=== PATIENT | male | born 1955 | race American Indian/Alaskan Native ===

== ENCOUNTER 2018-06-25 20:39 | Inpatient (IN) | payer OTHER, MEDICAID ==
[2018-06-25 20:45] VITALS: BMI 22.8
--- NOTE | 2018-06-25 21:09 | ED PDOC ---
Arrival/HPI - General Chief Complaint: Upper Extremity Problem/Injury Time Seen by Provider: 06/25/18 21:02 Historian: Patient - History of Present Illness Narrative History of Present Illness (Text): 06/25/18 21:05 Ford Maynard is a 63 year old male, whose past medical history includes CVA with left hemiparesis, who presents to the Emergency department brought in by EMS for left arm pain. Patient reports he has been experiencing left elbow/arm pain for the past few weeks. Limited HPI and ROS secondary to patient's dyarthria/acuity of condition. Symptom Onset: Gradual Symptom Course: Unchanged Activities at Onset: Light Context: Home Past Medical History - Provider Review Nursing Documentation Reviewed: Yes - Infectious Disease Hx of Infectious Diseases: None - Cardiac Hx Cardiac Disorders: Yes Hx Hypertension: Yes - Pulmonary Hx Respiratory Disorders: No - Neurological Hx Neurological Disorder: Yes HX Cerebrovascular Accident: Yes (L sided weakness and slurred speech) - HEENT Hx HEENT Disorder: No - Renal Hx Renal Disorder: No - Endocrine/Metabolic Hx Endocrine Disorders: Yes Hx Diabetes Mellitus Type 2: Yes - Hematological/Oncological Hx Blood Disorders: Yes Hx AIDS: Yes - Integumentary Hx Dermatological Disorder: No - Musculoskeletal/Rheumatological Hx Musculoskeletal Disorders: No - Gastrointestinal Hx Gastrointestinal Disorders: No - Genitourinary/Gynecological Hx Genitourinary Disorders: No - Psychiatric Hx Psychophysiologic Disorder: No Hx Substance Use: No Family/Social History - Physician Review Nursing Documentation Reviewed: Yes Family/Social History: Unknown Family HX Smoking Status: Never Smoked Hx Alcohol Use: No Hx Substance Use: No Allergies/Home Meds Allergies/Adverse Reactions: Allergies No Known Allergies Allergy (Verified 06/25/18 20:45) Home Medications: Home Meds Medication Instructions Recorded Confirmed Unobtainable 06/25/18 06/25/18 Review of Systems - Review of Systems Systems not reviewed;Unavailable: Acuity of Condition Cardiovascular: absent: Chest Pain Gastrointestinal: absent: Abdominal Pain Musculoskeletal: Arthralgias (+left elbow/arm pain) Physical Exam Vital Signs Reviewed: Yes Vital Signs Temp Pulse Resp BP Pulse Ox 06/25/18 20:50 99.3 F 88 19 171/97 H 100 Temperature: Afebrile Blood Pressure: Hypertensive Pulse: Regular Respiratory Rate: Normal Appearance: Positive for: Well-Appearing, Non-Toxic, Comfortable Pain Distress: None - Systems Exam Head: Present: Atraumatic, Normocephalic Pupils: Present: PERRL Extroacular Muscles: Present: EOMI Conjunctiva: Present: Normal Mouth: Present: Moist Mucous Membranes Neck: Present: Normal Range of Motion Respiratory/Chest: Present: Clear to Auscultation, Good Air Exchange. No: Respiratory Distress, Accessory Muscle Use Cardiovascular: Present: Regular Rate and Rhythm, Normal S1, S2. No: Murmurs Abdomen: No: Tenderness, Distention, Peritoneal Signs Back: Present: Normal Inspection Upper Extremity: Present: Tenderness (Pain on palpation of left elbow/forearm), Swelling (Swelling to left elbow/foreaem), Neurovascularly Intact, Temperature Abnormalties (Warmth to left elbow/forearm). No: Cyanosis, Edema Lower Extremity: Present: Normal Inspection. No: Edema Neurological: Present: GCS=15, CN II-XII Intact. No: Speech Normal (Dysarthria (old)), Motor Func Grossly Intact (Left-sided hemiparesis (old)) Skin: Present: Warm, Dry, Normal Color. No: Rashes Psychiatric: Present: Alert, Oriented x 3, Normal Insight, Normal Concentration Medical Decision Making ED Course and Treatment: 06/25/18 21:05 Impression: 63 year old male complaining of left elbow/arm pain. Plan: -- US Duplex Upper Extremities -- XR Left Elbow -- EKG -- Labs, VBG, blood cultures -- IV fluids -- Reassess and disposition Prior Visits: Notes and results from previous visits were reviewed. Progress Notes: Reviewed EKG, NSR at 98 bpm. LAHB. LVH. Non-specific ST/T wave changes. 06/25/18 23:52 Upon further information, pt may have possible fallen yesterday. 06/26/18 01:17 XR Left Elbow: Acute impacted distal humeral supracondylar fracture. Soft tissue edema and swelling. Joint effusion. No dislocation is noted. Calcaneal spur is noted. Impression: Acute impacted of the distal humeral supracondylar fracture. Electronically signed on Jun 26, 2018 12:19:47 AM EST by: Marc Elias M.D., Certified by ABR, MSK, Neuroradiology Chest X-ray: LUNGS: There is a calcified granuloma at the right mid lung zone laterally. No focal consolidation, large effusion or pneumothorax is identified. PLEURAL SPACES: No pleural effusion or pneumothorax. MEDIASTINUM: The cardiomediastinal silhouette is within normal limits. BONES: There is a healing left 8th rib fracture posterolaterally. There is evidence for a old fracture of the right distal clavicle with nonunion. IMPRESSION: 1. No acute cardiopulmonary abnormality. 2. Additional and incidental findings as described above. Electronically signed on Jun 26, 2018 12:20:04 AM EST by: Marc Elias M.D., Certified by ABR, MSK, Neuroradiology 06/26/18 01:[address] Reddy, who is aware and agrees with plan. Accepts pt in to his service. Pt will be admitted to [facility] for humerus fracture and cellulitis. Requests Dr. Gastelum, Dr. Gann, and Dr. Chandra on consult. 06/26/18 01:[address] Cruz, orthopedist, who is aware and agrees to consult on case. - EKG Interpretation Interpreted by ED Physician: Yes Type: 12 lead EKG - Scribe Statement The provider has reviewed the documentation as recorded by the Michaelibluís Foreman Provider Scribe Attestation: All medical record entries made by the Scribe were at my direction and personally dictated by me. I have reviewed the chart and agree that the record accurately reflects my personal performance of the history, physical exam, medical decision making, and the department course for this patient. I have also personally directed, reviewed, and agree with the discharge instructions and disposition. Disposition/Present on Arrival - Present on Arrival Any Indicators Present on Arrival: No History of DVT/PE: No History of Uncontrolled Diabetes: No Urinary Catheter: No History of Decub. Ulcer: No History Surgical Site Infection Following: None - Disposition Have Diagnosis and Disposition been Completed?: Yes Diagnosis: Humerus distal fracture, Cellulitis Disposition: HOSPITALIZED Disposition Time: 01:42 Patient Plan: Admission Patient Problems: Current Active Problems Problem Status Onset Cellulitis Acute Humerus distal fracture Acute Condition: STABLE
[2018-06-25] MEDS: Sodium Chloride 0.9% 1,000 ML IV SCH (21:45)
[2018-06-25 21:49] LABS: VENOUS BLOOD GAS BASE EXCESS -0.8 mmol/L (0.0-2.0); VENOUS BLOOD GAS PO2 179 mm/Hg (30-55); VENOUS BLOOD PH 7.36 (7.32-7.43)
[2018-06-25 22:00] LABS: BLOOD UREA NITROGEN 36 mg/dL (7-21); CALCIUM 9.3 mg/dL (8.4-10.5); GFR NON-AFRICAN AMERICAN 56
[2018-06-25 22:03] LABS: ALT/SGPT 19 U/L (7-56); AST/SGOT 41 U/L (17-59)
[2018-06-25 22:06] LABS: HEMOGLOBIN 11.6 g/dL (14.0-18.0); MEAN CELL VOLUME 85.1 fl (80.0-105.0); MEAN CORPUSCULAR HEMOGLOBIN 26.5 pg (25.0-35.0); MEAN CORPUSCULAR HGB CONC 31.2 g/dl (31.0-37.0); MEAN PLATELET VOLUME 10.6 fl (7.0-11.0); RBC 4.37 10^6/uL (3.5-6.1); RED CELL DISTRIBUTION WIDTH 15.5 % (11.5-14.5); WHITE BLOOD COUNT 10.6 10^3/uL (4.5-11.0)
[2018-06-25] MEDS ORDERED: Piperacillin/Tazobact 3.375 gm 100 ML IV STA (22:11)
[2018-06-25] MEDS ORDERED: Vancomycin 1gm in NS 250ml 1 GM/250 ML BAG IVPB STA (22:13)
[2018-06-25 22:37] LABS: URINE BILIRUBIN NEGATIVE (NEGATIVE); URINE BLOOD MODERATE (NEGATIVE); URINE GLUCOSE (UA) 100 mg/dL (NEGATIVE); URINE LEUKOCYTE ESTERASE NEGATIVE Leu/uL (NEGATIVE); URINE PROTEIN 100 mg/dL (<30 mg/dL); URINE UROBILINOGEN 0.2 E.U./dL (<1 E.U./dL)
[2018-06-25 22:49] LABS: INR 1.07; PARTIAL THROMBOPLASTIN TIME 34.6 Seconds (26.9-38.3); PROTHROMBIN TIME 11.9 SECONDS (9.4-12.5)
[2018-06-25 22:51] LABS: URINE APPEARANCE SL CLOUDY (CLEAR); URINE COLOR YELLOW (YELLOW)
[2018-06-25 22:58] LABS: URINE BACTERIA MOD /hpf
[2018-06-26] MEDS ORDERED: Morphine 2 mg/ml ISec IVP STA (01:58)
[2018-06-26 03:17] LABS: VENOUS BLOOD GAS BASE EXCESS 0.3 mmol/L (0.0-2.0); VENOUS BLOOD GAS PO2 36 mm/Hg (30-55); VENOUS BLOOD PH 7.35 (7.32-7.43)
[2018-06-26] MEDS: Sodium Chloride 0.9% 1,000 ML IV SCH ×2 (07:30→17:51)
[2018-06-26] MEDS ORDERED: PRAVASTATIN SODIUM 80 MG PO SCH (10:00)
[2018-06-26] MEDS ORDERED: Ergocalciferol 50,000 Intl Units Cap PO SCH ×2 (10:00)
[2018-06-26] MEDS ORDERED: PLAVIX 75 MG PO SCH (10:00)
[2018-06-26] MEDS ORDERED: LORATADINE 10 MG PO SCH (10:00)
--- NOTE | 2018-06-26 10:19 | RAD ---
Date of service: 06/25/2018 HISTORY: fever COMPARISON: No prior. FINDINGS: LUNGS: No active pulmonary disease. Mild peribronchial thickening PLEURA: No significant pleural effusion identified, no pneumothorax apparent. CARDIOVASCULAR: Minimal aortic calcification Normal cardiac size. No pulmonary vascular congestion. OSSEOUS STRUCTURES: Chronic fracture of the right distal clavicle VISUALIZED UPPER ABDOMEN: Normal. OTHER FINDINGS: None. IMPRESSION: No active disease.
--- NOTE | 2018-06-26 10:33 | CT ---
Date of service: 06/26/2018 PROCEDURE: CT HEAD WITHOUT CONTRAST. HISTORY: eval COMPARISON: None available. TECHNIQUE: Axial computed tomography images were obtained through the head/brain without intravenous contrast. Radiation dose: Total exam DLP = 1807.33 mGy-cm. This CT exam was performed using one or more of the following dose reduction techniques: Automated exposure control, adjustment of the mA and/or kV according to patient size, and/or use of iterative reconstruction technique. FINDINGS: HEMORRHAGE: No intracranial hemorrhage. BRAIN: No mass effect or edema. Chronic encephalomalacia is seen in the right parietal lobe and right temporal lobe. There is focal atrophy with dilatation of the right lateral ventricle especially the temporal horn. Chronic microvascular changes.. VENTRICLES: Unremarkable. No hydrocephalus. CALVARIUM: Unremarkable. PARANASAL SINUSES: Unremarkable as visualized. No significant inflammatory changes. MASTOID AIR CELLS: Unremarkable as visualized. No inflammatory changes. OTHER FINDINGS: None. IMPRESSION: Chronic encephalomalacia is seen in the right parietal lobe and right temporal lobe. There is focal atrophy with dilatation of the right lateral ventricle especially the temporal horn. Chronic microvascular changes.. No acute intracranial findings
[2018-06-26] MEDS: Pantoprazole 40 mg EC Tab PO SCH (11:22)
--- NOTE | 2018-06-26 12:24 | CON ---
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 X-rays of the left elbow show transverse condylar fracture of his left elbow minimally displaced with early callus formation, I could see on the x-ray. He has an posterior splint, we are going to avoid surgery because he has other comorbidities such as previous CVA. From my blood pressure hemiplegia of the left side and he does not utilize that left arm and I got that information from his power of employee benefits attorney that they would rather him not have any surgery because I told him this is a good chance of surgery may not work especially if he has no feeling and total weakness of his left elbow, so we see how he does given him a trial of conservative therapy with a posterior splint for at least 6 weeks the fracture and need we give order a brace in [place] bone stimulator to get the bone to heal, if does not healed, so avoid surgery of the left elbow he has could fall of in his home and I will see him in the office in 2 weeks and see how things go. FINAL DIAGNOSES: Transcondylar fracture left elbow with paralysis and will follow him closely with conservative therapy. Сергей Cruz DO
--- NOTE | 2018-06-26 13:14 | CARD ---
APPROVED REPORT Date of service: 06/25/2018 EKG Measurement Heart [id number] ID [id number] <Conclusion> Normal sinus rhythm Possible Left atrial enlargement Left anterior fascicular block Left ventricular hypertrophy with QRS widening Prolonged QT Abnormal ECG
--- NOTE | 2018-06-26 13:19 | RAD ---
Date of service: 06/25/2018 PROCEDURE: Radiographs of the left elbow. HISTORY: swelling COMPARISON: No prior. FINDINGS: BONES: Transverse defect to the distal humerus consistent with supracondylar fracture, of indeterminate age. No union. There is some callus seen about the fracture in the lateral projection. This may be artifactual. Correlate with history. Nondisplaced. No other fracture. No evidence of hemarthrosis. Extensive soft tissue swelling is seen about distal humerus. JOINTS: As above SOFT TISSUES: As above JOINT EFFUSION: None. OTHER FINDINGS: None IMPRESSION: Nondisplaced supracondylar fracture of indeterminate age. Extensive soft tissue swelling. The preliminary findings for this examination were reported by [facility] at 12:19 a.m. on 06/26/2018. There is concurrence of this report with the preliminary findings.
[2018-06-26] MEDS: oxyCODONE 5 mg Immediate Release Tab PO PRN ×2 (13:57→20:14)
[2018-06-26] MEDS: Insulin Reg-LOW-Coverage SC SCH ×2 (16:22→22:18)
--- NOTE | 2018-06-26 18:55 | US ---
PROCEDURE: Left upper extremity venous ultrasound HISTORY: Arm pain and swelling. Evaluate for deep venous thrombosis. PHYSICIAN(S): Mychal Wilkins MD. FINDINGS: The visualized leftinternal jugular vein is sonographically normal and compressible. No evidence of obstruction or thrombus is seen. The visualized segments of the left subclavian vein are patent with normal waveforms. No sonographic evidence of obstruction or thrombosis is seen. The visualized deep venous system of the proximal leftupper extremity is sonographically normal and compressible. IMPRESSION: 1. No sonographic evidence for deep venous thrombosis in the visualized segments of the left upper extremity.
--- NOTE | 2018-06-26 22:32 | CP.PCM.CON ---
History of Present Illness - History of Present Illness History of Present Illness: 63 year old male with PMH of CVA with left sided hemiparesis, DM, HIV/AIDS, was brought in to [facility] for left arm pain after he sustained a fall a few weeks ago. Xrays of the arm is showing supracondylar fracture. The patient does not recall how he fell. In the ED, there was note of some erythema and tenderness of the left arm. He denies fever or chills, no nausea or vomiting, no chest pain, no SOB, no headache or dizziness, no abdominal pain, no diarrhea, no dysuria, no cough or rhinorrhea. Infectious Diseases consult is requested to further evaluate and manage. Review of Systems - Review of Systems All systems: reviewed and no additional remarkable complaints except (as per HPI) Past Patient History - Infectious Disease Hx of Infectious Diseases: None - Past Social History Smoking Status: Light Smoker < 10 Cigarettes Daily - CARDIAC Hx Hypercholesterolemia: Yes Hx Hypertension: Yes - PULMONARY Hx Respiratory Disorders: Yes Hx Asthma: Yes - NEUROLOGICAL Hx Neurological Disorder: Yes HX Cerebrovascular Accident: Yes (lt sided hemiparesis) - HEENT Hx HEENT Problems: No - RENAL Hx Chronic Kidney Disease: No - ENDOCRINE/METABOLIC Hx Diabetes Mellitus Type 2: Yes - HEMATOLOGICAL/ONCOLOGICAL Hx Blood Disorders: Yes Hx Human Immunodeficiency Virus (HIV): Yes - INTEGUMENTARY Hx Dermatological Problems: No - MUSCULOSKELETAL/RHEUMATOLOGICAL Hx Falls: Yes Hx Unsteady Gait: Yes (states he uses a walker) - GASTROINTESTINAL Hx Gastrointestinal Disorders: No - GENITOURINARY/GYNECOLOGICAL Hx Genitourinary Disorders: No - PSYCHIATRIC Hx Substance Use: No - SURGICAL HISTORY Hx Surgeries: No Meds Allergies/Adverse Reactions: Allergies Allergy/AdvReac Type Severity Reaction Status Date / Time No Known Allergies Allergy Verified 06/25/18 20:45 - Medications Medications: Current Medications Sodium Chloride (Sodium Chloride 0.9%) 1,000 mls @ 100 mls/hr IV .Q10H ALTHEA Last Admin: 06/25/18 21:45 Dose: 100 mls/hr Physical Exam - Constitutional Appears: Chronically Ill - Head Exam Head Exam: NORMAL INSPECTION - Respiratory Exam Respiratory Exam: Decreased Breath Sounds - Cardiovascular Exam Cardiovascular Exam: +S1, +S2 - GI/Abdominal Exam GI & Abdominal Exam: Soft. absent: Tenderness - Extremities Exam Additional comments: left arm with immobilizer Results - Vital Signs Recent Vital Signs: Last Vital Signs Temp 99.1 F 06/25/18 22:03 Pulse 95 H 06/26/18 03:47 Resp 18 06/26/18 04:10 BP 171/98 H 06/26/18 03:47 Pulse Ox 96 06/26/18 03:47 - Labs Result Diagrams: 06/25/18 21:35 06/25/18 21:35 Labs: Laboratory Results - last 24 hr 06/25/18 06/25/18 06/25/18 21:35 21:35 21:35 WBC 10.6 RBC 4.37 Hgb 11.6 L Hct 37.2 L MCV 85.1 MCH 26.5 MCHC 31.2 RDW 15.5 H Plt Count 236 MPV 10.6 PT INR APTT pO2 179 H VBG pH 7.36 VBG pCO2 44.0 VBG HCO3 24.9 VBG Total CO2 26.3 VBG O2 Sat (Calc) 97.9 H VBG Base Excess -0.8 L VBG Potassium 6.1 H Sodium 140 139.0 Chloride 107 108.0 H Glucose 136 H Lactate 2.3 H FiO2 21.0 Crit Value Called To Merary kelley Crit Value Called By Atc Blood Gas Notified Time 2147 Potassium 4.8 Carbon Dioxide 24 Anion Gap 14 BUN 36 H Creatinine 1.3 Est GFR ( Amer) > 60 Est GFR (Non-Af Amer) 56 Random Glucose 131 H Calcium 9.3 Total Bilirubin 0.5 AST 41 ALT 19 Alkaline Phosphatase 130 H Total Protein 7.9 Albumin 4.0 Globulin 3.9 Albumin/Globulin Ratio 1.0 L Venous Blood Potassium 6.1 H Urine Color Urine Appearance Urine pH Ur Specific Wayne Urine Protein Urine Glucose (UA) Urine Ketones Urine Blood Urine Nitrate Urine Bilirubin Urine Urobilinogen Ur Leukocyte Esterase Urine RBC Urine WBC Ur Epithelial Cells Urine Bacteria 06/25/18 06/25/18 06/26/18 21:50 22:25 02:40 WBC RBC Hgb Hct MCV MCH MCHC RDW Plt Count MPV PT 11.9 INR 1.07 APTT 34.6 pO2 36 VBG pH 7.35 VBG pCO2 48.0 VBG HCO3 26.5 VBG Total CO2 28.0 VBG O2 Sat (Calc) 67.5 H VBG Base Excess 0.3 VBG Potassium 3.8 Sodium 142.0 Chloride 109.0 H Glucose 117 H Lactate 0.8 FiO2 21.0 Crit Value Called To Crit Value Called By Blood Gas Notified Time Potassium Carbon Dioxide Anion Gap BUN Creatinine Est GFR ( Amer) Est GFR (Non-Af Amer) Random Glucose Calcium Total Bilirubin AST ALT Alkaline Phosphatase Total Protein Albumin Globulin Albumin/Globulin Ratio Venous Blood Potassium 3.8 Urine Color Yellow Urine Appearance Sl cloudy Urine pH 6.0 Ur Specific Wayne >= 1.030 Urine Protein 100 H Urine Glucose (UA) 100 H Urine Ketones Negative Urine Blood Moderate H Urine Nitrate Negative Urine Bilirubin Negative Urine Urobilinogen 0.2 Ur Leukocyte Esterase Negative Urine RBC 5 - 10 H Urine WBC 5 - 10 H Ur Epithelial Cells 4 - 5 Urine Bacteria Mod Assessment & Plan - Assessment and Plan (Free Text) Plan: Assessment consider left arm cellulitis associated with left supracondylar fracture CVA with left sided hemiparesis DM HIV/AIDS Plan Started Teflaro and will monitor clinically follow up further plans for the fracture will continue cART for the patient chronic HIV infection
[2018-06-27] MEDS: oxyCODONE 5 mg Immediate Release Tab PO PRN ×2 (06:46→18:00)
[2018-06-27] MEDS: Insulin Reg-LOW-Coverage SC SCH ×4 (09:19→22:45)
[2018-06-27] MEDS: Pantoprazole 40 mg EC Tab PO SCH (10:55)
[2018-06-27] MEDS: Emtricitabine-Tenofovir 200 mg-300 mg Tab PO SCH (10:56)
[2018-06-27] MEDS: PREZISTA 600 MG PO SCH ×2 (14:40→17:50)
--- NOTE | 2018-06-27 16:25 | CP.PCM.PN ---
Subjective - Date & Time of Evaluation Date of Evaluation: 06/27/18 Time of Evaluation: 12:50 - Subjective Subjective: Comfortable, no increased pain in the left arm. Objective - Vital Signs/Intake and Output Vital Signs (last 24 hours): Temp Pulse Resp BP Pulse Ox 98.9 F 72 19 146/97 H 95 06/26/18 17:02 06/26/18 17:18 06/26/18 17:02 06/26/18 17:18 06/26/18 17:02 - Medications Medications: Current Medications Acetaminophen (Tylenol 325mg Tab) 650 mg PO Q6H PRN PRN Reason: Pain, moderate (4-7) Last Admin: 06/26/18 12:27 Dose: 650 mg Acetaminophen (Tylenol 325mg Tab) 650 mg PO Q6H PRN PRN Reason: Fever >100.4 F Aspirin (Ecotrin) 81 mg PO DAILY [facility] Last Admin: 06/26/18 11:12 Dose: 81 mg Atorvastatin Calcium (Lipitor) 20 mg PO DIN [facility] Last Admin: 06/26/18 16:41 Dose: 20 mg Clopidogrel Bisulfate (Plavix) 75 mg PO DAILY [facility] Emtricitabine/Tenofovir (Truvada 200 Mg-300 Mg) 1 tab PO DAILY [facility]; Protocol Ergocalciferol (Drisdol 50,000 Intl Units Cap) 1 cap PO QWK [facility] Last Admin: 06/26/18 11:11 Dose: 1 cap Ferrous Sulfate (Feosol) 324 mg PO DAILY [facility] Last Admin: 06/26/18 11:12 Dose: 324 mg Folic Acid (Folic Acid) 1 mg PO DAILY [facility] Last Admin: 06/26/18 11:12 Dose: 1 mg Home Med (Home Med) 1 unit PO BID [facility] Sodium Chloride (Sodium Chloride 0.9%) 1,000 mls @ 100 mls/hr IV .Q10H [facility] Last Admin: 06/26/18 17:51 Dose: 100 mls/hr Ceftaroline Fosamil 400 mg/ (Sodium Chloride) 100 mls @ 100 mls/hr IVPB Q12 [facility]; Protocol Stop: 07/03/18 10:01 Last Admin: 06/26/18 22:18 Dose: 100 mls/hr Insulin Human Regular (Humulin R Low) 0 units SC ACHS [facility]; Protocol Last Admin: 06/26/18 22:18 Dose: Not Given Lisinopril (Zestril) 5 mg PO DAILY [facility] Last Admin: 06/26/18 13:56 Dose: 5 mg Loratadine (Claritin) 10 mg PO DAILY [facility] Last Admin: 06/26/18 11:12 Dose: 10 mg Metformin HCl (Glucophage Xr) 500 mg PO BID [facility] Last Admin: 06/26/18 17:18 Dose: 500 mg Metoprolol Tartrate (Lopressor) 25 mg PO 0800,1800 [facility] Last Admin: 06/26/18 17:18 Dose: 25 mg Oxycodone HCl (Oxycodone Immediate Release Tab) 5 mg PO Q8 PRN PRN Reason: Pain, severe (8-10) Last Admin: 06/26/18 20:14 Dose: 5 mg Pantoprazole Sodium (Protonix Ec Tab) 40 mg PO DAILY [facility] Last Admin: 06/26/18 11:22 Dose: 40 mg Ritonavir (Norvir) 100 mg PO BID [facility]; Protocol - Labs Labs: 06/25/18 21:35 06/25/18 21:35 PT 11.9 SECONDS (9.4-12.5) 06/25/18 22:25 INR 1.07 06/25/18 22:25 APTT 34.6 Seconds (26.9-38.3) 06/25/18 22:25 - Constitutional Appears: No Acute Distress, Chronically Ill - Head Exam Head Exam: NORMAL INSPECTION - Respiratory Exam Respiratory Exam: Decreased Breath Sounds - Cardiovascular Exam Cardiovascular Exam: +S1, +S2 - GI/Abdominal Exam GI & Abdominal Exam: Soft. absent: Tenderness - Extremities Exam Additional comments: left arm with mild erythema over site of fracture (supracondylar area) Assessment and Plan - Assessment and Plan (Free Text) Plan: Assessment consider left arm cellulitis associated with left supracondylar fracture CVA with left sided hemiparesis DM HIV/AIDS Plan continue Teflaro day 2 for 5-7 days and will continue to monitor clinically follow up further plans for the fracture will continue cART for the patient chronic HIV infection
[2018-06-27] MEDS: Arformoterol 15 mcg/2 ml Inh Sol IH SCH (19:55)
[2018-06-27] MEDS: Budesonide 0.5 mg/2 ml Inhal Susp UD IH SCH (19:58)
[2018-06-27] MEDS ORDERED: Arformoterol 15 mcg/2 ml Inh Sol IH SCH (20:00)
[2018-06-28] MEDS: Budesonide 0.5 mg/2 ml Inhal Susp UD IH SCH ×2 (08:10→19:31)
[2018-06-28] MEDS: Arformoterol 15 mcg/2 ml Inh Sol IH SCH ×2 (08:10→19:31)
[2018-06-28] MEDS: Insulin Reg-LOW-Coverage SC SCH ×4 (08:31→22:52)
[2018-06-28] MEDS: Emtricitabine-Tenofovir 200 mg-300 mg Tab PO SCH (10:07)
[2018-06-28] MEDS: Pantoprazole 40 mg EC Tab PO SCH (10:08)
--- NOTE | 2018-06-28 12:51 | RAD ---
Date of service: 06/28/2018 PROCEDURE: Radiographs of the left elbow. HISTORY: new cast lt elbow fx COMPARISON: No prior. FINDINGS: BONES: Cast obscures fine bony details. There is redemonstration of a subacute transverse supracondylar fracture in the humerus. Evaluation of the radius and ulna are limited however there is question of fracture in the neck of the radius. JOINTS: Normal. SOFT TISSUES: Normal. JOINT EFFUSION: None. OTHER FINDINGS: None IMPRESSION: Cast obscures fine bony details. Redemonstration of presumable subacute transverse supracondylar fracture in the humerus. Question of age indeterminate fracture in the neck of the radius. Correlation with cross-sectional imaging may be performed if clinically warranted.
[2018-06-28] MEDS: PREZISTA 600 MG PO SCH ×2 (13:16→17:30)
--- NOTE | 2018-06-28 19:19 | PN ---
DATE: 06/28/2018 SUBJECTIVE: Patient is in bed in no acute distress. PHYSICAL EXAMINATION: VITAL SIGNS: Temperature is 98, blood pressure is 140/90, respiratory rate of 18, heart rate of 64. HEENT: Unremarkable. NECK: Supple. LUNGS: Have decreased breath sounds. HEART: Normal S1 and S2. ABDOMEN: Examination is soft. LABORATORY DATA: White count is 10,000, hemoglobin of 11, platelets of 236. BUN of 36, creatinine of 1.3. Urinalysis is noted. ASSESSMENT AND PLAN: This is a 63-year-old male with left arm cellulitis with a left supracondylar fracture, cerebrovascular accident, left-sided hemiparesis and diabetes. The patient with human immunodeficiency virus and acute immunodeficiency syndrome, day #3 of Teflaro. Case discussed with Dr. Cruz.. Review of orders reveals Teflaro to be active. We will follow with you. The patient is on his human immunodeficiency virus medications. Stevo Gann MD
[2018-06-28] MEDS: oxyCODONE 5 mg Immediate Release Tab PO PRN (20:37)
[2018-06-29] MEDS: oxyCODONE 5 mg Immediate Release Tab PO PRN ×2 (03:46→15:44)
--- NOTE | 2018-06-29 04:20 | PROCN ---
DATE: 06/28/2018 ORTHOPEDIC PROCEDURE REPORT This is a 63-year-old male. The patient was previously seen on 06/25/2018, for unstable fracture of left elbow. He fell approximately 2 to 3 weeks ago and that it was truly transverse fracture, just transcondylar with mild displacement, but it is very unstable, especially to strenuous motion and motion which is necessary when they move the patient when they grab the left upper extremity could inadvertently displace the left elbow fracture, so a casting had been put on in the emergency room on 06/25/2018. Basically, he had a fall because of him pulling at it. Today, 06/28/2018, I put him in a better cast by padding it well where he had some old abrasions on the wrist and the elbow areas that I padded dressings there. I put him on a long-arm posterior splint with lateral and medial gutters to strengthen it with plaster of Stephania and is well padded with orthopedic cotton. We put the cast on him and wrapped it with clean and TERESA bandage and wrapped that with tapes so that he does not pull at it and he if does it, hopefully we will minimize taking off, and then he will be ready to go to half-way anytime as long as I know where he has gone, so I could follow him. FINAL DIAGNOSES: Unstable fracture of left distal humerus at the elbow, transcondylar which if it is displaced he would need surgery, so we will see how he does. We will repeat the x-ray and follow him closely. The final diagnosis is unstable fracture of left distal humerus, transcondylar. Just put in a new well-padded and a more secured posterior and lateral splinting of the left upper extremity. Сергей Cruz DO
[2018-06-29] MEDS: Budesonide 0.5 mg/2 ml Inhal Susp UD IH SCH ×2 (07:45→19:49)
[2018-06-29] MEDS: Arformoterol 15 mcg/2 ml Inh Sol IH SCH ×2 (07:45→19:49)
[2018-06-29] MEDS ORDERED: Levalbuterol 1.25 MG/3 ML Inhal Soln UD IH PRN (07:59)
[2018-06-29] MEDS: Insulin Reg-LOW-Coverage SC SCH ×4 (09:09→22:41)
[2018-06-29] MEDS: Enoxaparin 40 mg Syringe SC SCH (09:19)
[2018-06-29] MEDS: Emtricitabine-Tenofovir 200 mg-300 mg Tab PO SCH (09:19)
[2018-06-29] MEDS: Pantoprazole 40 mg EC Tab PO SCH (09:19)
[2018-06-29] MEDS: PREZISTA 600 MG PO SCH ×2 (09:23→18:55)
[2018-06-30] MEDS: Arformoterol 15 mcg/2 ml Inh Sol IH SCH ×2 (08:00→19:28)
[2018-06-30] MEDS: Budesonide 0.5 mg/2 ml Inhal Susp UD IH SCH ×2 (08:00→19:28)
--- NOTE | 2018-06-30 08:42 | HP ---
DATE OF EXAM: 06/27/2018 HISTORY OF PRESENT ILLNESS: Patient 63-year-old male who . He had an x-ray done which shows neck fractures. Patient had some redness erythema, possible infection and was admitted for evaluation by Orthopedic and Infectious Disease. Patient according to the history, he remembered he fell, but he not know how or when, but he has history of a fall apparently. He denies any . He denies any chills or fever. No nausea. No vomiting. PAST MEDICAL HISTORY: left-sided . Patient has HIV AIDS. HOME MEDICATIONS: As follows; pravastatin 80 mg daily, iron once a day, aspirin once a day, Advair 250 mcg b.i.d., Truvada to nausea, once a day, NuZesta 690 b.i.d, Plavix 75 mg once a day, pantoprazole 40 mg once a day, metformin 500 mg b.i.d., loratadine , folic acid 1 mg once a day, and vitamin D once a day. ALLERGIES: NO KNOWN ALLERGY. REVIEW OF SYSTEMS: As above with the left-side weakness. SOCIAL HISTORY: He lives by himself, some assistance to help him at home. Taking multiple medications. Patient denies any other complaints. PHYSICAL EXAMINATION GENERAL: Patient is seen on the floor. He seems comfortable, in no distress. VITAL SIGNS: Temperature 99.3, heart rate 88, blood pressure 171/97, respirations 19, saturation 100%. HEAD AND NECK: Normal. No JVD. No thyromegaly. CHEST: Clear bilateral. CARDIAC: First sound and second sound normal. ABDOMEN: Soft and nontender. EXTREMITIES: Left upper extremity, there is swelling, some erythema and tenderness around the left elbow forearm, around the elbow area and the lower elbow tender. It has been wrapped by TERESA wrap around it. NEUROLOGIC: Left hemiplegia. LABORATORY DATA: Here he had white count 10.6, hemoglobin 11.5, hematocrit 37.2, and platelets 236. Chemistry; sodium 130, potassium 4.8, chloride 107, bicarb 24, BUN 36, creatinine 1.3, sugar 131. His . X-ray of the left elbow, supracondylar fracture. IMPRESSION AND PLAN: 1. Left supracondylar fracture, cellulitis. Infectious Disease consult and Orthopedic consult for the patient. We will start the patient on IV antibiotics and we will follow up recommendations. 2. Hypertension. We will start the patient on blood pressure medicines. We will get outside labs. 3. . Delvis Reddy MD
--- NOTE | 2018-06-30 09:36 | PN ---
DATE: 06/29/2018 SUBJECTIVE: The patient is seen earlier today in 371, bed 2. No fevers, no chills. He appears to be comfortable. PHYSICAL EXAMINATION: VITAL SIGNS: Temperature is 98, blood pressure is 170/90, respiratory rate of 20, heart rate of 71. HEENT: Unremarkable. NECK: Supple. LUNGS: Have decreased breath sounds. HEART: Normal S1, S2. ABDOMEN: Soft, nontender. LABORATORY EXAMINATION: Reveals a white count of 10,000, hemoglobin of 11, platelets of 236 BUN of 36, creatinine of 1.3. Blood cultures are no growth. Urine cultures are no growth. Review of orders reveals the patient to be on Teflaro. ASSESSMENT AND PLAN: This is a 63-year-old male with a left arm cellulitis and left supracondylar fracture, cerebrovascular accident, left-sided hemiparesis and diabetes and the patient with human immunodeficiency virus and acquired immunodeficiency syndrome, day #4 of Teflaro complete 5-7 days. Continue the human immunodeficiency virus medications. Stevo Gann MD
--- NOTE | 2018-06-30 09:39 | US ---
HISTORY: Leg pain and swelling. Evaluate for DVT PHYSICIAN(S): Mychal Wilkins MD. TECHNIQUE: Duplex sonography and color-flow Doppler with graded compression were used to evaluate the deep venous systems of both lower extremities. The exam is limited by the patient's inability to position FINDINGS: The visualized deep venous systems of both lower extremities are sonographically normal and compressible. Normal wave forms and augmentation are seen. There is no sonographic evidence for deep venous thrombosis in the visualized segments of both lower extremities. IMPRESSION: No sonographic evidence for deep venous thrombosis in the visualized segments of both lower extremities.
[2018-06-30] MEDS: PREZISTA 600 MG PO SCH ×2 (10:06→17:31)
[2018-06-30] MEDS: Insulin Reg-LOW-Coverage SC SCH ×4 (10:07→21:21)
[2018-06-30] MEDS: Enoxaparin 40 mg Syringe SC SCH (10:08)
[2018-06-30] MEDS: Pantoprazole 40 mg EC Tab PO SCH (10:10)
[2018-06-30] MEDS: Emtricitabine-Tenofovir 200 mg-300 mg Tab PO SCH (10:13)
--- NOTE | 2018-06-30 10:14 | PN ---
DATE: 06/27/2018 SUBJECTIVE: The patient is stable. No complaint. No chest pain. No short of breath. Blood pressure is improving. He was eating, tolerating diet well, and still on IV antibiotics. PHYSICAL EXAMINATION: VITAL SIGNS: saturation 97% on room air. HEAD AND NECK: Normal. No JVD. No thyromegaly. CHEST: Clear bilateral. CARDIAC: First sound and second sound normal. ABDOMEN: Soft and nontender. EXTREMITIES: Left upper extremity is in splint in the flexion position and seems stable. NEUROLOGIC: The patient does have left hemiplegia. LABORATORY DATA: Laboratory studies shows white blood count 10.6, hemoglobin 11.6, hematocrit , and platelet . Chemistry noted for sugar is in the cellulitis plus supracondylar fracture. Continue Teflaro IV, continue cast as done by orthopedics, immobilization for the fracture to heal . IMPRESSION AND PLAN: 1. Diabetes. Continue insulin coverage plus Glucophage. 2. Hypertension. We will give Lopressor 25 mg b.i.d. in addition to Zestril 5 mg daily. 3. Human immunodeficiency virus or acquired immunodeficiency syndrome. Continue antiretroviral therapy. The patient seems stable. 4. Left-sided cerebrovascular accident . Delvis Reddy MD
--- NOTE | 2018-06-30 11:34 | PN ---
DATE: 06/30/2018 LOCATION: In room 371, bed 2. SUBJECTIVE: This is a 63-year-old male being watched over for minimally displaced fracture left distal humerus, transverse with early callus, the exact date of injury is not known, but we are protecting the left arm with an improved well-padded posterior splint with lateral gutters to make it stronger and more protection for the left arm fracture the splint cast is well padded. We just have to keep it intact from him trying to take it off or irritating it unknowingly because he is restless and does not communicate verbally, so we will have to watch him extra close because the patient can not be able to be res[poncible for him self at the sub acute rehab, I know where he is going, I will be able to follow him in a day or two. FINAL DIAGNOSIS: Healing, in good position at distal left humerus fracture, transverse extra articular will follow him [facility].. Сергей Cruz DO NIDA
--- NOTE | 2018-06-30 16:35 | CP.PCM.PN ---
Subjective - Date & Time of Evaluation Date of Evaluation: 06/30/18 Time of Evaluation: 11:30 - Subjective Subjective: Afebrile, no increased pain in the left arm. Objective - Vital Signs/Intake and Output Vital Signs (last 24 hours): Temp Pulse Resp BP Pulse Ox 98.4 F 70 20 136/98 H 95 06/30/18 08:22 06/30/18 10:13 06/30/18 08:22 06/30/18 10:13 06/30/18 08:22 - Medications Medications: Current Medications Acetaminophen (Tylenol 325mg Tab) 650 mg PO Q6H PRN PRN Reason: Pain, moderate (4-7) Last Admin: 06/26/18 12:27 Dose: 650 mg Acetaminophen (Tylenol 325mg Tab) 650 mg PO Q6H PRN PRN Reason: Fever >100.4 F Arformoterol Tartrate (Brovana) 15 mcg IH [id number] [facility] Last Admin: 06/30/18 08:00 Dose: 15 mcg Aspirin (Ecotrin) 81 mg PO DAILY [facility] Last Admin: 06/30/18 10:03 Dose: 81 mg Atorvastatin Calcium (Lipitor) 20 mg PO DIN [facility] Last Admin: 06/29/18 19:02 Dose: 20 mg Budesonide (Pulmicort Respules) 0.5 mg IH BIDRESP [facility] Last Admin: 06/30/18 08:00 Dose: 0.5 mg Clonidine HCl (Catapres) 0.1 mg PO Q6H PRN PRN Reason: Systolic Blood Pressure Clopidogrel Bisulfate (Plavix) 75 mg PO DAILY [facility] Last Admin: 06/30/18 10:10 Dose: 75 mg Emtricitabine/Tenofovir (Truvada 200 Mg-300 Mg) 1 tab PO DAILY [facility]; Protocol Last Admin: 06/30/18 10:13 Dose: 1 tab Enoxaparin Sodium (Lovenox) 40 mg SC DAILY [facility]; Protocol Last Admin: 06/30/18 10:08 Dose: 40 mg Ergocalciferol (Drisdol 50,000 Intl Units Cap) 1 cap PO QWK [facility] Last Admin: 06/26/18 11:11 Dose: 1 cap Ferrous Sulfate (Feosol) 324 mg PO DAILY [facility] Last Admin: 06/30/18 10:04 Dose: 324 mg Folic Acid (Folic Acid) 1 mg PO DAILY [facility] Last Admin: 06/30/18 10:04 Dose: 1 mg Home Med (Home Med) 1 unit PO BID [facility] Last Admin: 06/30/18 10:06 Dose: 1 unit Hydralazine HCl (Apresoline) 10 mg PO Q6 [facility] Last Admin: 06/30/18 05:27 Dose: Not Given Ceftaroline Fosamil 400 mg/ (Sodium Chloride) 100 mls @ 100 mls/hr IVPB Q12 [facility]; Protocol Stop: 07/03/18 10:01 Last Admin: 06/30/18 10:12 Dose: 100 mls/hr Insulin Human Regular (Humulin R Low) 0 units SC ACHS [facility]; Protocol Last Admin: 06/30/18 10:07 Dose: Not Given Levalbuterol HCl (Xopenex) 1.25 mg IH [id number] PRN PRN Reason: Shortness of Breath Lisinopril (Zestril) 20 mg PO DAILY [facility] Last Admin: 06/30/18 10:13 Dose: 20 mg Loratadine (Claritin) 10 mg PO DAILY [facility] Last Admin: 06/30/18 10:03 Dose: 10 mg Metformin HCl (Glucophage Xr) 500 mg PO BID [facility] Last Admin: 06/30/18 10:05 Dose: 500 mg Metoprolol Tartrate (Lopressor) 25 mg PO 0800,1800 [facility] Last Admin: 06/30/18 10:07 Dose: 25 mg Oxycodone HCl (Oxycodone Immediate Release Tab) 5 mg PO Q8 PRN PRN Reason: Pain, severe (8-10) Last Admin: 06/29/18 15:44 Dose: 5 mg Pantoprazole Sodium (Protonix Ec Tab) 40 mg PO DAILY [facility] Last Admin: 06/30/18 10:10 Dose: 40 mg Ritonavir (Norvir) 100 mg PO BID [facility]; Protocol Last Admin: 06/30/18 10:09 Dose: 100 mg - Labs Labs: 06/25/18 21:35 06/25/18 21:35 PT 11.9 SECONDS (9.4-12.5) 06/25/18 22:25 INR 1.07 06/25/18 22:25 APTT 34.6 Seconds (26.9-38.3) 06/25/18 22:25 - Constitutional Appears: Chronically Ill - Head Exam Head Exam: NORMAL INSPECTION - Respiratory Exam Respiratory Exam: Decreased Breath Sounds - Cardiovascular Exam Cardiovascular Exam: +S1, +S2 - GI/Abdominal Exam GI & Abdominal Exam: Soft. absent: Tenderness Assessment and Plan - Assessment and Plan (Free Text) Plan: Assessment consider left arm cellulitis associated with left supracondylar fracture CVA with left sided hemiparesis DM HIV/AIDS Plan continue Teflaro day 5 for 5-7 days and will continue to monitor clinically follow up further plans for the fracture will continue cART for the patient chronic HIV infection
[2018-07-01 07:23] VITALS: O2SAT 95
[2018-07-01] MEDS: Budesonide 0.5 mg/2 ml Inhal Susp UD IH SCH ×2 (07:39→19:17)
[2018-07-01] MEDS: Arformoterol 15 mcg/2 ml Inh Sol IH SCH ×2 (07:39→19:17)
[2018-07-01] MEDS: Insulin Reg-LOW-Coverage SC SCH ×4 (08:09→21:34)
[2018-07-01] MEDS: Emtricitabine-Tenofovir 200 mg-300 mg Tab PO SCH (09:54)
[2018-07-01] MEDS: Pantoprazole 40 mg EC Tab PO SCH (09:57)
[2018-07-01] MEDS: Enoxaparin 40 mg Syringe SC SCH (09:57)
[2018-07-01] MEDS: PREZISTA 600 MG PO SCH ×2 (09:58→18:18)
--- NOTE | 2018-07-01 10:33 | PN ---
DATE: 06/30/2018 SUBJECTIVE: The patient is comfortable. No distress. He has no chest pain, currently on IV antibiotic. PHYSICAL EXAMINATION: VITAL SIGNS: Temperature 97.4, heart rate 73, blood pressure 144/95, respiration 18, and saturating 96%. HEAD AND NECK: Normal. No JVD. No thyromegaly. CHEST: Clear bilaterally. CARDIAC: First sound and second sound normal. No murmur, rub, or gallop. ABDOMEN: Soft and nontender. NEUROLOGIC: Left hemiplegia. EXTREMITIES: The patient also has left upper extremity cast. ASSESSMENT: 1. Left elbow cellulitis, continue IV Teflaro 400 IV twice a day. 2. Supracondylar fractures, stable. The patient has a and we will continue that for one and a half months at least. 3. Hypertension is improving. We will increase Zestril to 20 mg daily. 4. Left cerebrovascular accident. Continue aspirin and Plavix. 5. The patient had human immunodeficiency virus. Continue current medications as per Infectious Disease recommendation. 6. Diabetes type 2. Continue metformin and insulin coverage. PLAN: Continue GI and DVT prophylaxis. The patient will need IV antibiotics and will follow up with consultants. Delvis Reddy MD
--- NOTE | 2018-07-01 15:12 | CP.PCM.PN ---
Subjective - Date & Time of Evaluation Date of Evaluation: 07/01/18 Time of Evaluation: 11:35 - Subjective Subjective: Afebrile, comfortable. Objective - Vital Signs/Intake and Output Vital Signs (last 24 hours): Temp Pulse Resp BP Pulse Ox 98.4 F 70 20 130/88 95 06/30/18 08:22 06/30/18 14:03 06/30/18 08:22 06/30/18 14:03 06/30/18 08:22 Intake and Output: 06/30/18 06/30/18 06:59 18:59 Intake Total 480 Output Total 200 Balance 280 - Medications Medications: Current Medications Acetaminophen (Tylenol 325mg Tab) 650 mg PO Q6H PRN PRN Reason: Pain, moderate (4-7) Last Admin: 06/26/18 12:27 Dose: 650 mg Acetaminophen (Tylenol 325mg Tab) 650 mg PO Q6H PRN PRN Reason: Fever >100.4 F Arformoterol Tartrate (Brovana) 15 mcg IH [id number] [facility] Last Admin: 06/30/18 08:00 Dose: 15 mcg Aspirin (Ecotrin) 81 mg PO DAILY [facility] Last Admin: 06/30/18 10:03 Dose: 81 mg Atorvastatin Calcium (Lipitor) 20 mg PO DIN [facility] Last Admin: 06/29/18 19:02 Dose: 20 mg Budesonide (Pulmicort Respules) 0.5 mg IH BIDRESP [facility] Last Admin: 06/30/18 08:00 Dose: 0.5 mg Clonidine HCl (Catapres) 0.1 mg PO Q6H PRN PRN Reason: Systolic Blood Pressure Clopidogrel Bisulfate (Plavix) 75 mg PO DAILY [facility] Last Admin: 06/30/18 10:10 Dose: 75 mg Emtricitabine/Tenofovir (Truvada 200 Mg-300 Mg) 1 tab PO DAILY [facility]; Protocol Last Admin: 06/30/18 10:13 Dose: 1 tab Enoxaparin Sodium (Lovenox) 40 mg SC DAILY [facility]; Protocol Last Admin: 06/30/18 10:08 Dose: 40 mg Ergocalciferol (Drisdol 50,000 Intl Units Cap) 1 cap PO QWK [facility] Last Admin: 06/26/18 11:11 Dose: 1 cap Ferrous Sulfate (Feosol) 324 mg PO DAILY [facility] Last Admin: 06/30/18 10:04 Dose: 324 mg Folic Acid (Folic Acid) 1 mg PO DAILY [facility] Last Admin: 06/30/18 10:04 Dose: 1 mg Home Med (Home Med) 1 unit PO BID [facility] Last Admin: 06/30/18 10:06 Dose: 1 unit Hydralazine HCl (Apresoline) 10 mg PO Q6 [facility] Last Admin: 06/30/18 14:03 Dose: 10 mg Ceftaroline Fosamil 400 mg/ (Sodium Chloride) 100 mls @ 100 mls/hr IVPB Q12 [facility]; Protocol Stop: 07/03/18 10:01 Last Admin: 06/30/18 10:12 Dose: 100 mls/hr Insulin Human Regular (Humulin R Low) 0 units SC ACHS [facility]; Protocol Last Admin: 06/30/18 14:04 Dose: Not Given Levalbuterol HCl (Xopenex) 1.25 mg IH [id number] PRN PRN Reason: Shortness of Breath Lisinopril (Zestril) 20 mg PO DAILY [facility] Last Admin: 06/30/18 10:13 Dose: 20 mg Loratadine (Claritin) 10 mg PO DAILY [facility] Last Admin: 06/30/18 10:03 Dose: 10 mg Metformin HCl (Glucophage Xr) 500 mg PO BID [facility] Last Admin: 06/30/18 10:05 Dose: 500 mg Metoprolol Tartrate (Lopressor) 25 mg PO 0800,1800 [facility] Last Admin: 06/30/18 10:07 Dose: 25 mg Pantoprazole Sodium (Protonix Ec Tab) 40 mg PO DAILY [facility] Last Admin: 06/30/18 10:10 Dose: 40 mg Ritonavir (Norvir) 100 mg PO BID [facility]; Protocol Last Admin: 06/30/18 10:09 Dose: 100 mg - Labs Labs: 06/25/18 21:35 06/25/18 21:35 PT 11.9 SECONDS (9.4-12.5) 06/25/18 22:25 INR 1.07 06/25/18 22:25 APTT 34.6 Seconds (26.9-38.3) 06/25/18 22:25 - Constitutional Appears: Chronically Ill - Head Exam Head Exam: NORMAL INSPECTION - Respiratory Exam Respiratory Exam: Decreased Breath Sounds - Cardiovascular Exam Cardiovascular Exam: +S1, +S2 - GI/Abdominal Exam GI & Abdominal Exam: Soft. absent: Tenderness Assessment and Plan - Assessment and Plan (Free Text) Assessment: Assessment consider left arm cellulitis associated with left supracondylar fracture CVA with left sided hemiparesis DM HIV/AIDS Plan continue Teflaro day 6 for 5-7 days and will continue to monitor clinically follow up further plans for the fracture will continue cART for the patient chronic HIV infection
[2018-07-02] MEDS: Arformoterol 15 mcg/2 ml Inh Sol IH SCH (07:26)
[2018-07-02] MEDS: Budesonide 0.5 mg/2 ml Inhal Susp UD IH SCH (07:26)
[2018-07-02 09:16] VITALS: RESP 17; TEMP 98.7
[2018-07-02 11:00] LABS: HEMOGLOBIN 11.5 g/dL (14.0-18.0); MEAN CELL VOLUME 84.1 fl (80.0-105.0); MEAN CORPUSCULAR HEMOGLOBIN 26.5 pg (25.0-35.0); MEAN CORPUSCULAR HGB CONC 31.5 g/dl (31.0-37.0); MEAN PLATELET VOLUME 10.1 fl (7.0-11.0); RBC 4.34 10^6/uL (3.5-6.1); RED CELL DISTRIBUTION WIDTH 14.3 % (11.5-14.5); WHITE BLOOD COUNT 9.7 10^3/uL (4.5-11.0)
[2018-07-02] MEDS: Insulin Reg-LOW-Coverage SC SCH ×3 (11:01→16:35)
[2018-07-02] MEDS: PREZISTA 600 MG PO SCH ×2 (11:01→17:05)
[2018-07-02 11:05] LABS: ALBUMIN 3.8 g/dL (3.0-4.8); ALT/SGPT 24 U/L (7-56); AST/SGOT 36 U/L (17-59); BLOOD UREA NITROGEN 27 mg/dL (7-21); CALCIUM 9.8 mg/dL (8.4-10.5); GFR NON-AFRICAN AMERICAN > 60
[2018-07-02] MEDS: Enoxaparin 40 mg Syringe SC SCH (11:10)
[2018-07-02] MEDS: Emtricitabine-Tenofovir 200 mg-300 mg Tab PO SCH (11:11)
[2018-07-02] MEDS: Pantoprazole 40 mg EC Tab PO SCH (11:12)
--- NOTE | 2018-07-02 12:41 | PN ---
DATE: 07/01/2018 SUBJECTIVE: The patient lies in the bed comfortable. No distracted feeling. IV antibiotic. No new complaints. PHYSICAL EXAMINATION: VITAL SIGNS: Temperature 98.1, heart rate 71, blood pressure 131/90, respiration 19, and saturation 95%. HEAD AND NECK: Normal. No JVD. No thyromegaly. CHEST: Clear bilaterally. CARDIAC: First sound and second sound normal. No murmur, rub, or gallop. ABDOMEN: Soft and nontender. EXTREMITIES: Left upper extremity, there is a cast. NEUROLOGIC: Left hemiplegia. LABORATORY DATA: Today his blood sugar is running between 139 to 143. IMPRESSION: 1. Left upper extremity elbow area cellulitis. Continue IV Teflaro. 2. Left upper extremity supracondylar fracture. The patient has a cast, seen by Orthopedics. 3. Hypertension is improving. Continue Zestril 20 mg one a day. 4. Diabetes. Continue insulin coverage. Continue metformin 500 mg twice a day. 5. Chronic obstructive pulmonary disease. Continue current inhaled bronchodilator, Pulmicort and Brovana; stable. 6. Human immunodeficiency virus/acquired immunodeficiency syndrome. Continue current medications. He is getting Truvada pills and seems stable. PLAN: Continue current therapy for above problems. Continue aspirin and Plavix for his left side hemiplegia. Delvis Reddy MD
--- NOTE | 2018-07-02 14:31 | CP.PCM.PN ---
Subjective - Date & Time of Evaluation Date of Evaluation: 07/02/18 Time of Evaluation: 10:55 - Subjective Subjective: Comfortable in bed, afebrile. Objective - Vital Signs/Intake and Output Vital Signs (last 24 hours): Temp Pulse Resp BP Pulse Ox 97.9 F 66 20 131/89 95 07/01/18 06:00 07/01/18 13:27 07/01/18 06:00 07/01/18 13:27 07/01/18 06:00 Intake and Output: 07/01/18 07/01/18 06:59 18:59 Intake Total 780 Output Total 125 Balance 655 - Medications Medications: Current Medications Acetaminophen (Tylenol 325mg Tab) 650 mg PO Q6H PRN PRN Reason: Pain, moderate (4-7) Last Admin: 06/26/18 12:27 Dose: 650 mg Acetaminophen (Tylenol 325mg Tab) 650 mg PO Q6H PRN PRN Reason: Fever >100.4 F Arformoterol Tartrate (Brovana) 15 mcg IH [id number] [facility] Last Admin: 07/01/18 07:39 Dose: 15 mcg Aspirin (Ecotrin) 81 mg PO DAILY [facility] Last Admin: 07/01/18 09:56 Dose: 81 mg Atorvastatin Calcium (Lipitor) 20 mg PO DIN [facility] Last Admin: 06/30/18 17:32 Dose: 20 mg Budesonide (Pulmicort Respules) 0.5 mg IH BIDRESP [facility] Last Admin: 07/01/18 07:39 Dose: 0.5 mg Clonidine HCl (Catapres) 0.1 mg PO Q6H PRN PRN Reason: Systolic Blood Pressure Clopidogrel Bisulfate (Plavix) 75 mg PO DAILY [facility] Last Admin: 07/01/18 09:54 Dose: 75 mg Emtricitabine/Tenofovir (Truvada 200 Mg-300 Mg) 1 tab PO DAILY [facility]; Protocol Last Admin: 07/01/18 09:54 Dose: 1 tab Enoxaparin Sodium (Lovenox) 40 mg SC DAILY [facility]; Protocol Last Admin: 07/01/18 09:57 Dose: 40 mg Ergocalciferol (Drisdol 50,000 Intl Units Cap) 1 cap PO QWK [facility] Last Admin: 06/26/18 11:11 Dose: 1 cap Ferrous Sulfate (Feosol) 324 mg PO DAILY [facility] Last Admin: 07/01/18 09:54 Dose: 324 mg Folic Acid (Folic Acid) 1 mg PO DAILY [facility] Last Admin: 07/01/18 09:55 Dose: 1 mg Home Med (Home Med) 1 unit PO BID [facility] Last Admin: 07/01/18 09:58 Dose: 1 unit Hydralazine HCl (Apresoline) 10 mg PO Q6 [facility] Last Admin: 07/01/18 13:27 Dose: 10 mg Ceftaroline Fosamil 400 mg/ (Sodium Chloride) 100 mls @ 100 mls/hr IVPB Q12 [facility]; Protocol Stop: 07/03/18 10:01 Last Admin: 07/01/18 09:58 Dose: 100 mls/hr Insulin Human Regular (Humulin R Low) 0 units SC ACHS [facility]; Protocol Last Admin: 07/01/18 11:56 Dose: Not Given Levalbuterol HCl (Xopenex) 1.25 mg IH [id number] PRN PRN Reason: Shortness of Breath Lisinopril (Zestril) 20 mg PO DAILY [facility] Last Admin: 07/01/18 09:56 Dose: 20 mg Loratadine (Claritin) 10 mg PO DAILY [facility] Last Admin: 07/01/18 09:54 Dose: 10 mg Metformin HCl (Glucophage Xr) 500 mg PO BID [facility] Last Admin: 07/01/18 09:55 Dose: 500 mg Metoprolol Tartrate (Lopressor) 25 mg PO 0800,1800 [facility] Last Admin: 07/01/18 08:57 Dose: 25 mg Pantoprazole Sodium (Protonix Ec Tab) 40 mg PO DAILY [facility] Last Admin: 07/01/18 09:57 Dose: 40 mg Ritonavir (Norvir) 100 mg PO BID [facility]; Protocol Last Admin: 07/01/18 10:00 Dose: 100 mg - Labs Labs: 06/25/18 21:35 06/25/18 21:35 PT 11.9 SECONDS (9.4-12.5) 06/25/18 22:25 INR 1.07 06/25/18 22:25 APTT 34.6 Seconds (26.9-38.3) 06/25/18 22:25 - Constitutional Appears: Chronically Ill - Head Exam Head Exam: NORMAL INSPECTION - Respiratory Exam Respiratory Exam: Decreased Breath Sounds - Cardiovascular Exam Cardiovascular Exam: +S1, +S2 - GI/Abdominal Exam GI & Abdominal Exam: Soft. absent: Tenderness - Extremities Exam Additional comments: left arm with splint and bandages in place Assessment and Plan - Assessment and Plan (Free Text) Plan: Assessment consider left arm cellulitis associated with left supracondylar fracture CVA with left sided hemiparesis DM HIV/AIDS Plan completed course of Teflaro - will monitor off antibiotics follow up further plans for the fracture will continue cART for the patient chronic HIV infection
[2018-07-02 17:17] VITALS: BP 146/95; PULSE 68
== END 2018-07-02 18:52 | DRG 563 ==
LOC: ED 20:39 → ERH 06-26 01:43 → 3RSO 06-26 03:53
PROVIDERS: ADMIT Internal Medicine; ATTEND Internal Medicine
PROC: 2W3DX1Z Immobilization of Left Lower Arm using Splint (ICD-10-PCS; principal; 2018-06-28)
DX: S42.412A Displaced simple supracondylar fracture without intercondylar fracture of left humerus, initial encounter for closed fracture (principal); S22.32XA Fracture of one rib, left side, initial encounter for closed fracture; L03.114 Cellulitis of left upper limb; I69.354 Hemiplegia and hemiparesis following cerebral infarction affecting left non-dominant side; Z21 Asymptomatic human immunodeficiency virus [HIV] infection status; E11.9 Type 2 diabetes mellitus without complications; E78.00 Pure hypercholesterolemia, unspecified; I10 Essential (primary) hypertension; J44.9 Chronic obstructive pulmonary disease, unspecified; Z79.02 Long term (current) use of antithrombotics/antiplatelets; Z79.82 Long term (current) use of aspirin; Z79.84 Long term (current) use of oral hypoglycemic drugs; Z79.899 Other long term (current) drug therapy; F17.210 Nicotine dependence, cigarettes, uncomplicated; Z91.81 History of falling; J84.10 Pulmonary fibrosis, unspecified